=== PATIENT | female | born 1975 ===

== ENCOUNTER → 2018-09-01 22:55 | Outpatient (ROUT) | payer OTHER, SELFPAY ==
[2018-09-02 00:10] LABS: Add Manual Diff / Slide Review NO; Basophils Absolute Auto 0 /uL (0-100); Basophils Percent Auto 1.2 % (0-2); Eosinophils Absolute Auto 100 /uL (0-450); Eosinophils Percent Auto 1.9 % (2-4); Hematocrit 34.3 % (36-46); Hemoglobin 11.4 g/dL (12.0-16.0); Lymphocytes Absolute Auto 1100 /uL (1100-4500); Lymphocytes Percent Auto 43.9 % (25-40); Mean Corpuscular HGB Conc 33.2 % (30-36); Mean Corpuscular Hemoglobin 29.4 PG (26-34); Mean Corpuscular Volume 88.5 fL (80-100); Monocytes Absolute Auto 200 /uL (0-900); Monocytes Percent Auto 8.2 % (3-14); Neutrophils Absolute Auto 1200 /uL (1500-7000); Neutrophils Percent Auto 44.8 % (50-75); Platelet Count 152 X10^3/uL (150-400); Red Blood Cell Count 3.87 X10^6/uL (4.0-5.2); Red Cell Distribution Width 12.5 % (11.6-14.8); White Blood Cell Count 2.6 X10^3/uL (4.5-11.0)
[2018-09-02 00:22] LABS: Vitamin D 25 Hydroxy (D3) 34.6 ng/mL (30.0-100.0)
[2018-09-02 01:22] LABS: HEMOLYSIS < 15 (0-50); Iron 66 ug/dL (37-170)
[2018-09-02 01:24] LABS: Alanine Aminotransferase 25 IU/L (9-52); Albumin 4.2 g/dL (3.5-5.0); Albumin Globulin Ratio 1.8 (1.0-2.8); Alkaline Phosphatase 38 U/L (38-126); Aspartate Aminotransferase 25 IU/L (14-36); BUN Creatinine Ratio 21.7 (6-22); Bilirubin Total 0.4 mg/dL (0.2-1.3); Blood Urea Nitrogen 13 mg/dL (7-17); Calcium 9.6 mg/dL (8.4-10.2); Carbon Dioxide 27 mmol/L (22-32); Chloride 107 mmol/L (98-107); Estimated Glomerular Filt Rate > 60.0 mL/min (>60); Globulin 2.4 g/dL (1.7-4.1); Glucose 84 mg/dL (70-100); HEMOLYSIS < 15 (0-50); Potassium 4.1 mmol/L (3.4-5.1); Sodium 141 mmol/L (137-145); Total Protein 6.6 g/dL (6.3-8.2)
[2018-09-02 01:35] LABS: Percent Iron Saturation 19 % (15-50); Total Iron Binding Capacity 355 ug/dL (265-497); Transferrin 269 mg/dL (206-381)
[2018-09-02 01:40] LABS: Free T3, Triiodothyronine Free 2.95 pg/mL (2.77-5.27)
[2018-09-02 01:42] LABS: Hemoglobin A1C% w Est Avg Glu 5.1 % (4.0-6.0)
[2018-09-02 01:53] LABS: Thyroid Stimulating Hormone 1.59 uIU/mL (0.47-4.68)
[2018-09-02 02:30] LABS: Folate 15.4 ng/mL (2.76-20.0); Vitamin B12 536 pg/mL (239-931)
[2018-09-07 23:18] LABS: Methylmalonic Acid 257 nmol/L (87-318)
== END ==
PROVIDERS: Visit Provider Naturopath
DX: E03.9 Hypothyroidism, unspecified (principal); E55.9 Vitamin D deficiency, unspecified; E61.1 Iron deficiency; R73.9 Hyperglycemia, unspecified; Z00.01 Encounter for general adult medical examination with abnormal findings
CPT/HCPCS: 36415; 80053; 80061; 82306; 82607; 82746; 83036; 83540; 83550; 83921; 84439; 84443; 84481; 85025